=== PATIENT | female | born 1935 | race Caucasian/White ===

== ENCOUNTER 2016-11-01 07:53 | Inpatient (IN) ==
--- NOTE | 2016-11-01 08:27 | Emergency Department Note ---
Arrival - Arrival Chief Complaint: Weakness Stated Complaint: weakness ED Nursing Triage Note: left sided weakness noted left sided facial droop noted. Thick tongue with talking Mode of Arrival: Stretcher Limitations: No Limitations Source: Patient, Family, RN Notes Reviewed Time Seen by Provider: 11/01/16 08:13 - History of Present Illness HPI Narrative: Patient is an 81-year-old white female who awakened this morning from sleep with left arm left leg weakness and slurred speech. Patient's last known well time was between 9 and 10 PM last night. She denies a headache. She denies any chest pain or shortness of breath. Onset (ago): unknown Consistency: constant Severity: moderate Quality: other Date of Last Menstrual Period: hysterectomy Allergies/Adverse Reactions: Allergies Allergy/AdvReac Type Severity Reaction Status Date / Time Penicillins Allergy RASH Verified 08/16/15 20:42 Home Medications: Home Medications Medication Instructions Recorded Confirmed Type Carbidopa/Levodopa 1 each PO TID 11/01/16 11/01/16 History [Carbidopa-Levodopa 25-100 Tab] Fenofibrate [Tricor] 145 mg PO DAILY 11/01/16 11/01/16 History Glimepiride [Amaryl] 4 mg PO DAILY 11/01/16 11/01/16 History Lisinopril 40 mg PO DAILY 11/01/16 11/01/16 History Metformin HCl 1,000 mg PO BID 11/01/16 11/01/16 History Metoprolol Succinate Xl [Toprol Xl] 25 mg PO DAILY 11/01/16 11/01/16 History amLODIPine [Norvasc] 5 mg PO DAILY 11/01/16 11/01/16 History Review of System - Review of System 12 point system: reviewed and no additional remarkable complaints except as stated - Review of System Constitutional: Absent: chills, fever Respiratory: Absent: cough, respiratory distress Cardiovascular: Absent: chest pain, dyspnea on exertion, orthopnea Gastrointestinal: Absent: nausea, vomiting Musculoskeletal: Absent: arm pain Neurological: Present: weakness, abnormal gait. Absent: headache, numbness, confusion Medical,Surgical,& Family Hx - Medical History Cardio: History of: Hypertension Endocrine: History of: Diabetes Mellitus (IDDM) - Social History Smoking Status: Never smoker Frequency of Alcohol Use: None Type of Drug Use: None Functional capacity: independent ambulation Exam Vital Signs: Vital Signs Temperature 98.0 F 11/01/16 08:03 Pulse Rate 60 11/01/16 08:03 Respiratory Rate 17 11/01/16 08:03 Blood Pressure 161/68 11/01/16 08:03 O2 Sat by Pulse Oximetry 93 L 11/01/16 08:03 GENERAL: This is a well-nourished well-developed white female in no apparent distress. VITAL SIGNS: Reviewed HEENT: Head is atraumatic and normocephalic. Pupils are equal round react to light. Extraocular movements are intact. Oropharynx is benign with moist mucous membranes. NECK: Neck is soft and supple without tenderness. There are no masses. There is no lymphadenopathy. LUNGS: Lungs are clear to auscultation. Chest rises symmetrically. There is no chest wall tenderness. CV: Heart is irregular rate and rhythm without murmurs rubs or gallops. ABDOMEN: Abdomen is soft, nontender to palpation. There are no abdominal abnormal masses palpated. There is no organomegaly. Bowel sounds are present and active. SKIN: Skin is warm and dry. No rash. EXTREMITIES: Patient has full range of motion without tenderness. There is no pedal edema. NEUROLOGIC: Awake alert and oriented 4. Cranial nerves II through XII are grossly intact with the exception of tongue deviation to the right. No visual field cut. Motor is 5 over 5 right arm and right leg, 3-4/5 in left arm and left leg. Ulnar drift in the left arm. Deep tendon reflexes are 2+ and bilaterally equal. Course Course Narrative: Patient is not a candidate for tPA due to her last known well time. - Consultations Consultation #1: Discussed with hospitalist. Patient will be admitted to their service. Time: 08:30 Results - Labs Lab Results: I have reviewed the patients labs - EKG EKG results: interpreted by ERMD - Impressions EKG: Sinus bradycardia with a rate of 53, right bundle branch block, old inferior UT. Old anterolateral UT. - Diagnostic Findings Procedure: Chest x-ray: image reviewed by me (No infiltrates, no pleural effusions.), CT: image reviewed by me (CT head: No acute intracranial lesion or hemorrhage.) Disposition Clinical Impression: Acute ischemic stroke Case discussed with: patient, patient's family Disposition: Still a Patient Condition: Stable Time of Disposition: 08:30 NIH Stroke Score - Stroke Score Initial Assessment Level of Consciousness: Alert Level of Consciousness Questions: Answers Both Correctly Level of Consciousness Commands: Obeys Both Correctly Best Gaze: Normal Visual Matute: No Visual Loss Facial Palsy: Normal Motor - Right Arm: No Drift Motor - Left Arm: Drift Motor - Right Leg: No Drift Motor - Left Leg: Drift Limb Ataxia: Present in Two Limbs Sensory (Pin Prick): Normal Best Language: Normal Dysarthria: Mild to Moderate Extinction / Inattention (Neglect): No Neglect NIH Stroke Score: 5
--- NOTE | 2016-11-01 08:27 | CT Report ---
CT brain Indication: Left side hemiparesis Comparison: None available Technique: Axial CT imaging of the brain is performed without contrast with 3 mm increments. Findings: No evidence of hemorrhage, mass mass effect midline shift or acute infarct seen. There is moderate diffuse cerebral atrophy. There are areas of decreased density seen within the white matter likely related to chronic microvascular changes. Otherwise the brain parenchyma attenuation and differentiation appears within normal limits. The ventricles and cisterns are normal in caliber. No cranial or skull base abnormality is identified. Impression: No definite evidence of acute infarct or acute process demonstrated. Decreased white matter density, underlying subacute infarct cannot be excluded. This CT exam was performed using one or more the following dose reduction techniques: Automated exposure control, adjustment of the MA and/or KV according to patient size, or use of iterative reconstruction technique. PROCEDURE INTERPRETED AT [facility] DEPARTMENT OF RADIOLOGY Final Report Signed by: Dr. Davidson Mulligan
--- NOTE | 2016-11-01 08:31 | XRay Report ---
XR chest 1V portable Indication: Cardiomegaly Comparison: None available Findings: The heart and mediastinum are stable in size and configuration. The pulmonary vascularity is slightly increased with bilateral increased interstitial lung density. No other lung infiltrates, effusions, pneumothorax or other abnormality is demonstrated. Impression: Findings suggest mild cardiac decompensation. PROCEDURE INTERPRETED AT [facility] DEPARTMENT OF RADIOLOGY Final Report Signed by: Dr. Davidson Mulligan
--- NOTE | 2016-11-01 08:35 | EKG Report ---
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
[2016-11-01 08:44] LABS: Basophils # 0.1 10*3/uL (0.0-0.2); Basophils % 0.5 % (0.0-0.8); Eosinophils # 0.1 10*3/uL (0.0-0.87); Eosinophils % 1.3 % (0.00-10.9); Hematocrit 42.9 VOL% (35.7-47.0); Hemoglobin 15.1 GM/DL (12.0-16.0); Immature Granulocytes % 0.4 %; Immature Granulocytes Absolute 0.04 #; Lymphocytes # 2.4 10*3/uL (1.4-4.0); Lymphocytes % 22.1 % (21.3-54.2); Mean Corpuscular HGB Conc 35.2 GM/DL (32-36); Mean Corpuscular Hemoglobin 32 PG (27-34); Mean Corpuscular Volume 90.5 FL (87-102); Mean Platelet Volume 11.8 FL (9.6-12.0); Monocytes % 9.8 % (1.7-12.7); Neutrophils % 65.9 % (38.7-73.9); Platelet Count 224 T/CUMM (130-400); Red Blood Count 4.74 MC/CUMM (3.8-5.5); Red Cell Distribution Width 12.7 % (9.3-17.3); White Blood Count 10.6 T/CUMM (4-12)
[2016-11-01 08:58] LABS: PT Patient Result 11.1 SECS; Partial Thromboplastin Time 27.1 SECS (0-40)
[2016-11-01 09:18] LABS: Apearance,Urine CLEAR (Clear); Bilirubin,Urine Negative (Negative); Blood, Urine Negative (Negative); Glucose,Urine (UA) Negative (Negative); Hyaline Casts,Urine 1 /LPF (0-3); Ketones,Urine Negative (Negative); Nitrite,Urine Negative (Negative); Protein,Urine Negative; RBC,Urine <1 /HPF (0-4); Squamous Epithelial Cell,Urine Occasional /HPF (0-10); Urine Color Yellow (Yellow); Urine Specific Gravity 1.011 (1.001-1.035); Urine Urobilinogen < 2.0 EU/DL (0.2-1.0); WBC,Urine <1 /HPF (0-6)
[2016-11-01 09:19] LABS: Alanine Aminotransferase 26 U/L (13-56); Albumin 3.6 G/DL (3.4-5.0); Alkaline Phosphatase 46 U/L (45-117); Aspartate Amino Transferase 26 U/L (0-37); Blood Urea Nitrogen 16 MG/DL (7-18); Calcium 9.5 MG/DL (8.5-10.1); Glucose 151 MG/DL (74-106); Sodium 138 MMOL/L (136-145); Total Protein 7.9 G/DL (6.4-8.3)
[2016-11-01 09:20] LABS: Osmolality,Calculated 278.7 MOS/KG (273-304)
[2016-11-01 09:30] LABS: Barbiturates Screen,Urine Negative (Negative); Benzodiazepines Screen,Urine Negative (Negative); Cannabinoid Screen,Urine Negative (Negative); Opiate Screen,Urine Negative (Negative); Phencyclidine Screen,Urine Negative (Negative)
--- NOTE | 2016-11-01 09:30 | Hospitalist History & Physical ---
<Anna Lara - Last Filed: 11/01/16 09:53> Assessment and Plan - Time spent with patient Time spent with patient: Greater than 30 minutes (1) Acute ischemic stroke Status: Acute Assessment and plan: 11/01/16 - Will admit to Hospital Services. Will start ASA. Will order MRI and MRA. Will consult Neurology. Will discuss with Dr Luo for further recommendations of care. Current Visit: Yes History of Present Illness Chief complaint: left sided weakness new onset History of present illness: Ms. Arevalo is a 81 year old white female w/ PMHx of hypertension and diabetes; presented to the Ed from [facility] for c/o weakness, left sided. She reports feeling fine when she went to bed at between 9-10, woke up this morning around 6 got up to eat breakfast but started feeling weak in her left arm and left leg. She denies nausea, vomiting, fever, chills, chest pain, shortness of breath or headache. IN ED: she was noted to have some slurred speech. Head CT: Impression: No definite evidence of acute infarct or acute process demonstrated. Decreased white matter density, underlying subacute infarct cannot be excluded. CXR: Findings suggest mild cardiac decompensation. LABS: INR 1.0 PT 11.1, PTT 27.1; Glucose 151; Urine was negative. After discussion with Dr Alexander in the ED and Dr Luo with Hospital Medicine, it was agreed patient will need to be admitted for further evaluation. Home medications will be reviewed and reconciliation to follow. Home Medications Medication Instructions Recorded Confirmed Type Carbidopa/Levodopa 1 each PO TID 11/01/16 11/01/16 History [Carbidopa-Levodopa 25-100 Tab] Fenofibrate [Tricor] 145 mg PO DAILY 11/01/16 11/01/16 History Glimepiride [Amaryl] 4 mg PO DAILY 11/01/16 11/01/16 History Lisinopril 40 mg PO DAILY 11/01/16 11/01/16 History Metformin HCl 1,000 mg PO BID 11/01/16 11/01/16 History Metoprolol Succinate Xl [Toprol Xl] 25 mg PO DAILY 11/01/16 11/01/16 History amLODIPine [Norvasc] 5 mg PO DAILY 11/01/16 11/01/16 History Allergies Allergy/AdvReac Type Severity Reaction Status Date / Time Penicillins Allergy RASH Verified 08/16/15 20:42 Medical,Surgical,& Family Hx - Medical History Cardio: History of: Hypertension Endocrine: History of: Diabetes Mellitus (IDDM) - Surgical History Reproductive Surgeries: Surgical HX of;: Hysterectomy - Family History Family History: Reports;: Family Diabetes, Family Heart Disease, Family Hypertension - Social History Smoking Status: Never smoker Frequency of Alcohol Use: None Type of Drug Use: None Lives With:: [facility] [place] Functional capacity: uses cane/walker (ocassionally uses a cane not very often) Review of systems: ROS completed and pertinent positives and negatives in HPI. Exam - Constitutional Vitals: Period Temp Pulse Resp BP Sys/Minor Pulse Ox Last 24 Hr 98.0 F-98.0 F 60-60 17-17 161-161/68-68 93-97 General appearance: normal weight, no acute distress Exam: Patient appropriately responded to all questions; alert awake and oriented to person and place. She had notable left sided weakness to left arm and left leg. 3-4/5 in arm and leg -left Right arm and leg 5/5 Facial droop- slight to left side involving eye and mouth Tongue deviation to the right - slight - Head Head exam: Present: normal inspection - Eye Eye exam: Present: EOMI Pupils: Present: KEVIN - Neck Neck exam: Present: normal inspection. Absent: thyromegaly - Respiratory Respiratory exam: Present: clear to auscultation bilaterally. Absent: rhonchi, stridor, wheezes - Cardiovascular Cardiovascular exam: Present: irregular rhythm - GI/Abdominal GI/Abdominal exam: Present: normal bowel sounds, soft. Absent: tenderness, rebound - Extremities Exam Extremities exam: Present: full ROM. Absent: edema - Neurological Exam Neurological exam: Present: alert, oriented X3 - Psychiatric Psychiatric exam: Present: normal affect, normal mood. Absent: agitated, anxious - Skin Skin exam: Present: normal color, warm, dry Results - Labs CBC & BMP: 11/01/16 08:15 11/01/16 08:15 Lab Results: I have reviewed the past 24 hour labs - Diagnostic Findings Procedure: Chest x-ray: report reviewed by me (Findings suggest mild cardiac decompensation.), CT: report reviewed by me, pending (head: No definite evidence of acute infarct or acute process demonstrated; Decreased white matter density, underlying subacute infarct cannot be excluded) Quality Measures - Stroke Onset of Symptoms Date: 11/01/16 Presenting Symptoms: Left hemiparesis Symptom Onset Unknown: Yes <Monica Luo - Last Filed: 11/01/16 12:23> History of Present Illness History of present illness: Ms. Arevalo is a 81 year old female with a history of HTN, Dementia, DM who was doing relatively okay went to sleep last night in her usual self, then she woke up this am, was about to go to the bathroom, noticed some weakness on her left side.Her speech was also noticed to be slurred.She however denies facial weakness, swallowing problems and headaches. There was no palpitation, chestpain or SOB.In the ER,Blood pressure was 131/79,CT showed no acute changes but a subacute infarct could not be ruled out.She was started on ASA and currently on admission for a stroke workup.Patient was seen, examined and discussed with the COMMERCIAL TELLER. Plan Monitored bed activate stroke protocol Carotid doppler-Less than 50% stenosis in both internal carotid arteries Echo Lipids-noted, will place on statin TSH Vitb12, folate MRI/MRA PT/OT/ST consult Evaluate swallowing DVT/GI prophylaxis Follow Echo Neuro consult continue current management. serial cardiac enzymes SSC Exam - Constitutional Vitals: Period Temp Pulse Resp BP Sys/Minor Pulse Ox Last 24 Hr 98.0 F-98.0 F 43-60 13-20 131-168/63-98 93-99 Results - Labs CBC & BMP: 11/01/16 08:15 11/01/16 08:15
[2016-11-01] MEDS ORDERED: LABETALOL 20 MG/4 ML SYRINGE IV PRN (09:40)
[2016-11-01] MEDS ORDERED: GLUCAGON 1 MG VIAL IM PRN (09:50)
[2016-11-01] MEDS ORDERED: DEXTROSE 50% 25 GM/50 ML VIAL IV PRN (09:50)
[2016-11-01] MEDS ORDERED: ACETAMINOPHEN 325 MG TABLET PO PRN (09:51)
[2016-11-01] MEDS ORDERED: DOCUSATE SODIUM 100 MG CAPSULE PO PRN (09:51)
[2016-11-01] MEDS ORDERED: ONDANSETRON 4 MG/2 ML VIAL IV PRN (09:51)
[2016-11-01 10:08] LABS: Cholesterol 176 MG/DL (50-200); HDL Cholesterol 32 MG/DL (40-60); Triglycerides 162 MG/DL (2-150); Troponin I Only < 0.015 NG/ML (0.00-0.045); VLDL CHOLESTEROL 32.4 MG/DL
--- NOTE | 2016-11-01 10:54 | Ultrasound Report ---
Exam: Carotid ultrasound Date: 11/01/2016 Comparison: None Technique: Duplex scans of the carotid and vertebral arteries using B-mode/Reeder scale imaging and Doppler spectral analysis and color flow. Reason: Left-sided weakness Findings: The right ICA measures 5.4 mm in diameter and the left ICA measures 6.0 mm in diameter. Color-flow documented in the visualized arteries. The peak systolic velocities are as follows: Right CCA: 77.6 cm/s Right ICA: 132.7 cm/s Right ECA: 69.3 cm/s Left CCA: 86.4 cm/s Left ICA: 65.0 cm/s Left ECA: 76.1 cm/s The peak systolic ICA/CCA velocity ratios are as follows: 1.7 on the right and 0.8 on the left. Antegrade flow is present in both vertebral arteries. Impression:[Less than 50% stenosis in both internal carotid arteries. The stenosis is felt to be at the upper end of this range in the proximal right ICA with more prominent calcific plaque formation. The arteries are tortuous. Antegrade flow in both vertebral arteries.] The Society of Radiologists in Ultrasound consensus conference criteria was used. The Ultrasound images were captured and stored. PROCEDURE INTERPRETED AT [facility] DEPARTMENT OF RADIOLOGY Final Report Signed by: Dr. Luann Franco
[2016-11-01 13:17] LABS: Troponin I Only < 0.015 NG/ML (0.00-0.045)
[2016-11-01 13:27] LABS: Folate 13.6 NG/ML (5.4-24.0); Free T4 (Free Thyroxine) 1.15 NG/DL (0.76-1.46); Thyroid Stimulating Hormone 1.26 uIU/ml (0.358-3.74)
[2016-11-01] MEDS ORDERED: DEXTROSE 50% 25 GM/50 ML SYRINGE IV PRN (15:30)
--- NOTE | 2016-11-01 16:51 | Neurology Consult Note ---
History of Present Illness History of present illness: 81 years old right-handed white lady with past medical history significant for hypertension, diabetes is a resident of assisted living admitted to the hospital with acute onset of left-sided weakness. Granddaughter reported that she woke up this morning and had speech difficulties and left-sided weakness. She cannot move her left arm and leg. She has significantly dysarthric speech. She passed swallowing study though. CT of the head reveals no acute abnormalities. Denies nausea vomiting fever chills chest pain shortness of breath or headache. Patient is scheduled for MRI of the brain. Home Medications Medication Instructions Recorded Confirmed Type Carbidopa/Levodopa 1 each PO TID 11/01/16 11/01/16 History [Carbidopa-Levodopa 25-100 Tab] Fenofibrate [Tricor] 145 mg PO DAILY 11/01/16 11/01/16 History Glimepiride [Amaryl] 4 mg PO DAILY 11/01/16 11/01/16 History Levothyroxine Tab [Synthroid Tab] 25 mcg PO DAILY 11/01/16 11/01/16 History Lisinopril 40 mg PO DAILY 11/01/16 11/01/16 History Metformin HCl 1,000 mg PO BID 11/01/16 11/01/16 History Metoprolol Succinate Xl [Toprol Xl] 25 mg PO DAILY 11/01/16 11/01/16 History amLODIPine [Norvasc] 5 mg PO DAILY 11/01/16 11/01/16 History Allergies Allergy/AdvReac Type Severity Reaction Status Date / Time Penicillins Allergy RASH Verified 08/16/15 20:42 12 point system: reviewed and no additional remarkable complaints except as stated Medical,Surgical,& Family Hx - Medical History Cardio: History of: Hypertension Endocrine: History of: Diabetes Mellitus (IDDM) - Surgical History Thoracic Surgeries: Patient denies;: Organ Transplant Reproductive Surgeries: Surgical HX of;: Hysterectomy - Family History Family History: Reports;: Family Diabetes, Family Heart Disease, Family Hypertension - Social History Smoking Status: Never smoker Frequency of Alcohol Use: None Type of Drug Use: None Exam - Constitutional Vitals: Period Temp Pulse Resp BP Sys/Minor Pulse Ox Last 24 Hr 96.3 F-98.0 F 43-95 13-20 131-168/63-98 93-99 Exam: GENERAL: Patient is in no acute distress. NECK: Neck is supple. There is no JVD. No carotid bruits present. No thyroid masses. CVS: First and second heart sounds are normal. There is no S3 present. Regular rate and rhythm. RESPIRATORY: Lungs are clear to auscultation without any rales or rhonchi. ABDOMEN: Soft and non-tender. Bowel sounds are present. There is no hepatosplenomegaly. EXT: There is no palpable edema. Peripheral pulses are present. Skin: No rashes Central Nervous system: General: Alert, awake and Oriented x 3 Speech: Fluent Comprehension: Intact and normal Facial expressions: Normal Cranial Nerves: CN1/Olfactory: Normal CN II/ Optic: Normal, Visual Matute unreliable CN III, and : KEVIN & EOMI CN V: Normal & intact CN VII: face is symmetric CNVIII: Normal CN XI/X/XI/XII: Intact and Normal Motor: Bulk and Tone is normal. Strength in the right 5/5 Strength in the left 1-2/5 Sensory: Decreased for all the modalities of PP, LT and temp sense Reflexes: 1+ and symmetrical Cerebellar function: Normal finger to nose and heel to hemphill testing in the right and could not do the left. Toes: Left upgoing toe Gait: Not tested at this time Results - Labs CBC & BMP: 11/01/16 08:15 11/01/16 08:15 Assessment and Plan (1) Acute CVA (cerebrovascular accident) Status: Acute Assessment and plan: Continue aspirin. Add Plavix. Consult TMR We will review MRI Agree with Lipitor Add Prozac 20 mg daily Thank you for the consult Current Visit: Yes
[2016-11-01] MEDS: INSULIN LISPRO 100 UNIT/ML SUBCUT SCH (18:04)
--- NOTE | 2016-11-01 19:59 | ECHO Report ---
Jj Arevalo Exam Date: 11/01/2016 11:03 Referring Physician: Technologist: sheree Pineda ARDMS, RVT Age: 81 Ht (in): 66 Wt (lb): 145 Gender: F Exam Location: [facility] Echo Indications: Acute ischemic stroke BP: 145 / 54 HR: 51 Rhythm: Sinus Technical Quality: Fair IMPRESSIONS 1. Somewhat limited study. 2. Left ventricle is normal size with septal hypertrophy. Ejection fraction 55% without specific segmental wall motion abnormalities. 2. Other cardiac chambers are normal size. 3. Valvular structures are grossly unremarkable and within normal limits. There certainly is no significant Doppler abnormalities. 4. There is no gross intrachamber mass or thrombi noted or source for emboli. Certainly this could be missed on a transthoracic echocardiogram of this quality. MEASUREMENTS (Male / Female) Normal Values 2D ECHO LV Diastolic Diameter PLAX 4.1 cm 4.2 - 5.9 / 3.9 - 5.3 cm LV Systolic Diameter PLAX 2.1 cm LV Fractional Shortening PLAX 48.4 % IVS Diastolic Thickness 1.4 cm 0.6 - 1.0 / 0.6 - 0.9 cm LVPW Diastolic Thickness 1.0 cm 0.6 - 1.0 / 0.6 - 0.9 cm RV Internal Dim ED PLAX 3.2 cm Aortic Root Diameter 3.8 cm LA Systolic Diameter LX 2.9 cm 3.0 - 4.0 / 2.7 - 3.8 cm DOPPLER TR Peak Velocity 212.0 cm/s TR Peak Gradient 18.0 mmHg FINDINGS Left Ventricle Normal left ventricular cavity size. Mild left ventricular hypertrophy specifically septal hypertrophy. Left ventricular ejection fraction is estimated at 65 %. Right Ventricle The right ventricle is normal in size and function. Right Atrium The right atrium is normal in size. Left Atrium The left atrium is normal in size. Mitral Valve Morphologically normal mitral valve without significant stenosis or prolapse. There is no mitral regurgitation. Aortic Valve Morphologically normal aortic valve without significant sclerosis or stenosis. There is no aortic regurgitation. Tricuspid Valve Morphologically normal tricuspid valve without significant stenosis or regurgitation. Pulmonary artery systolic pressure is normal. Pulmonic Valve Morphologically normal pulmonic valve. Mild pulmonary valve regurgitation. Pericardium Normal pericardium without effusion. Aorta Normal ascending aorta dimension. Richard Corado MD (Electronically Signed) Final Date: 01 November 2016 19:58
[2016-11-01] MEDS: ATORVASTATIN 10 MG TABLET PO SCH (21:05)
[2016-11-01] MEDS: FLUoxetine 20 MG CAPSULE PO SCH (21:05)
[2016-11-01] MEDS: ENOXAPARIN 40 MG/0.4 ML SYRINGE SUBCUT SCH (22:30)
[2016-11-02 05:31] LABS: Basophils % 0.5 % (0.0-0.8); Eosinophils # 0.1 10*3/uL (0.0-0.87); Eosinophils % 0.9 % (0.00-10.9); Hematocrit 42.6 VOL% (35.7-47.0); Immature Granulocytes % 0.5 %; Immature Granulocytes Absolute 0.04 #; Lymphocytes # 2.1 10*3/uL (1.4-4.0); Lymphocytes % 24.1 % (21.3-54.2); Mean Corpuscular HGB Conc 35.2 GM/DL (32-36); Mean Corpuscular Hemoglobin 32 PG (27-34); Mean Corpuscular Volume 89.5 FL (87-102); Monocytes # 0.8 10*3/uL (0.11-0.8); Neutrophils # 5.7 10*3/uL (1.4-7.4); Platelet Count 163 T/CUMM (130-400); Red Blood Count 4.76 MC/CUMM (3.8-5.5); Red Cell Distribution Width 12.6 % (9.3-17.3); White Blood Count 8.8 T/CUMM (4-12)
[2016-11-02 06:06] LABS: Calcium 9.5 MG/DL (8.5-10.1)
[2016-11-02 06:23] LABS: Troponin I Only < 0.015 NG/ML (0.00-0.045)
[2016-11-02] MEDS: CLOPIDOGREL 75 MG TABLET PO SCH (09:16)
[2016-11-02] MEDS: ASPIRIN 325 MG TABLET PO SCH (09:16)
[2016-11-02] MEDS: PANTOPRAZOLE 40 MG TABLET PO SCH (09:16)
[2016-11-02] MEDS: INSULIN LISPRO 100 UNIT/ML SUBCUT SCH ×2 (09:16→17:15)
[2016-11-02] MEDS ORDERED: LORazepam 2 MG/1 ML VIAL IV ONE (09:26)
--- NOTE | 2016-11-02 11:06 | Magnetic Resonance Report ---
History: Left-sided weakness. Slurred speech Date: 11/02/2016 Study: MRI brain without IV contrast Comparison exam: CT head November 01, 2016 The brain was imaged in 3 planes on the 1.5 Tavia magnet without IV contrast, to include diffusion, T2, FLAIR, gradient echo, and T1-weighted sequences. The ventricles are midline in position without evidence of hydrocephalus. There is no Chiari I malformation. There is no gross pituitary mass. There is a wedge-shaped area of restricted diffusion compatible with acute ischemia measuring 8 mm x 16 mm maximum dimensions in the timmy to the right of the midline, as seen on the diffusion images. There is no parenchymal hemorrhage. There is no abnormal mass effect. There is a large amount of confluent increased T2 and FLAIR signal in the periventricular white matter without mass effect compatible with prominent changes of periventricular small vessel disease. There are innumerable prominent perivascular spaces throughout the frontoparietal centrum semiovale and diaz radiata, with or without intermixed areas of chronic lacunar ischemia. There is a normal flow void in the superior sagittal sinus. There is no gross flow abnormality in the [place] of Mary area. There is no extra-axial hematoma. Remote post cataract surgery changes are present bilaterally. Impression: 16 x 8 mm area of acute ischemia in the timmy to the right of midline. No parenchymal hemorrhage. Prominent changes of chronic small vessel ischemia PROCEDURE INTERPRETED AT [facility] DEPARTMENT OF RADIOLOGY Final Report Signed by: Dr. Lisseth Nieto
--- NOTE | 2016-11-02 14:53 | Hospitalist Progress Note ---
Assessment and Plan - Time spent with patient Time spent with patient: Greater than 30 minutes (Pt is new to me and I reviewed pt's chart and discussed with RN and pt's family members today.) (1) Acute ischemic stroke Status: Acute Assessment and plan: Stroke protocol. Fall precaution. Aspiration precaution. Neurology consulted. On stroke protocol. On ASA and Plavix per Neurology. Continue lipitor. PT and OT and Speech f/u. Current Visit: Yes (2) Hyperglycemia Status: Acute Assessment and plan: Monitor, BMP in am. If still high, will add insulin sliding scale. Current Visit: Yes Hospitalist: Subjective Interval history: Sleeping. Had MRI done this am and showed 16x8mm acute ischemic stroke in [place]. Echo and carotid US done yesterday. On ASA and plavix per Neurology. Speech evaluted pt. PT consulted. Son in the room. No fever or diarrhea reported. UA clear no UTI. Exam - Constitutional Vitals: Period Temp Pulse Resp BP Sys/Minor Pulse Ox Last 24 Hr 96.3 F-99.2 F 53-95 18-20 125-163/70-85 92-98 Exam: General: Lying in bed and sleeping HEENT: AC NC EOMI normal lips and gum. Lungs: B/l CTA Heart: +S1/S2, no gallops. Abd: +BS, NT ND Neuro: Weakness on left side extremities. Results - Labs CBC & BMP: 11/02/16 05:12 11/02/16 05:12 Quality Measures - Stroke Onset of Symptoms Date: 11/01/16 Presenting Symptoms: Left hemiparesis Symptom Onset Unknown: Yes
[2016-11-02] MEDS: ATORVASTATIN 10 MG TABLET PO SCH (20:51)
[2016-11-02] MEDS: FLUoxetine 20 MG CAPSULE PO SCH (20:51)
[2016-11-02] MEDS: ENOXAPARIN 40 MG/0.4 ML SYRINGE SUBCUT SCH (20:51)
[2016-11-02] MEDS ORDERED: FAMOTIDINE 20 MG/2 ML VIAL IV ONE (21:20)
[2016-11-02] MEDS ORDERED: diphenhydrAMINE CAP 50 MG CAPSULE PO ONE (21:21)
[2016-11-02] MEDS ORDERED: diphenhydrAMINE CAP 25 MG CAPSULE PO PRN (21:22)
[2016-11-02] MEDS ORDERED: hydrOXYzine HCL 25 MG TABLET PO ONE (23:35)
[2016-11-03 02:34] LABS: Basophils % 0.4 % (0.0-0.8); Eosinophils # 0.2 10*3/uL (0.0-0.87); Eosinophils % 1.8 % (0.00-10.9); Hematocrit 41.3 VOL% (35.7-47.0); Hemoglobin 14.5 GM/DL (12.0-16.0); Immature Granulocytes % 0.3 %; Immature Granulocytes Absolute 0.03 #; Lymphocytes # 2.9 10*3/uL (1.4-4.0); Lymphocytes % 28.8 % (21.3-54.2); Mean Corpuscular HGB Conc 35.1 GM/DL (32-36); Mean Corpuscular Hemoglobin 31 PG (27-34); Mean Corpuscular Volume 89.4 FL (87-102); Mean Platelet Volume 12.6 FL (9.6-12.0); Monocytes % 9.8 % (1.7-12.7); Neutrophils % 58.9 % (38.7-73.9); Platelet Count 223 T/CUMM (130-400); Red Blood Count 4.62 MC/CUMM (3.8-5.5); Red Cell Distribution Width 12.8 % (9.3-17.3); White Blood Count 10.2 T/CUMM (4-12)
[2016-11-03 02:57] LABS: Albumin 3.4 G/DL (3.4-5.0); Bilirubin,Total 0.7 MG/DL (0.2-1.0); Calcium 9.2 MG/DL (8.5-10.1); Phosphorous 3.6 MG/DL (2.5-4.9); Total Protein 7.2 G/DL (6.4-8.3)
[2016-11-03 02:58] LABS: Magnesium 2.2 MG/DL (1.8-2.4); Osmolality,Calculated 284.5 MOS/KG (273-304); Potassium 3.7 MMOL/L (3.5-5.1)
[2016-11-03] MEDS: metFORMIN 500 MG TABLET PO SCH ×2 (09:12→16:41)
[2016-11-03] MEDS: ASPIRIN 325 MG TABLET PO SCH (09:12)
[2016-11-03] MEDS: CLOPIDOGREL 75 MG TABLET PO SCH (09:13)
[2016-11-03] MEDS: INSULIN LISPRO 100 UNIT/ML SUBCUT SCH ×2 (09:15→16:41)
[2016-11-03] MEDS: PANTOPRAZOLE 40 MG TABLET PO SCH (09:48)
--- NOTE | 2016-11-03 10:25 | Hospitalist Progress Note ---
Assessment and Plan (1) Acute CVA (cerebrovascular accident) Status: Acute Assessment and plan: MRI on yesterday reported 16 x 8 mm acute ischemic stroke isolated in the timmy. Carotid Doppler reported less than 50% stenosis in both internal carotid arteries. Echocardiogram reported left ventricular normal size with septal hypertrophy and an ejection fraction of 55% without specific segmental wall motion abnormalities. A neurology consultation has been requested and the patient has been seen and evaluated. We will continue aspiration precautions and platelet aggregation as ordered. Spoke with the family in great detail regarding the need for intensive rehab at the time of discharge. The family is in agreement with swing bed placement and request placement at [facility] if possible. Current Visit: Yes (2) Acute ischemic stroke Status: Acute Assessment and plan: MRI on yesterday confirmed 16 x 8 mm acute ischemic stroke in the timmy. The patient has been seen and evaluated by neurology. We will continue platelet aggregation, lipid-lowering agents, and aspiration precautions as ordered. Current Visit: Yes (3) Hyperglycemia Status: Acute Assessment and plan: Hemoglobin A1c was noted at 7.0. The patient remains on Accu-Cheks with sliding scale coverage; blood glucose levels have remained consistently elevated over 130 overnight. We will start low-dose metformin 250 mg twice daily. We will monitor blood glucose levels and provide supportive care. Current Visit: Yes Hospitalist: Subjective Interval history: Patient seen and examined. Staff reported an uneventful night last night they reported that the patient possibly had an allergic reaction to the lorazepam given prior to MRI. They reported that the patient became very flushed and her face was grossly erythemic. In addition, they noted that the patient became restless and started to experience pruritus. The patient was given Benadryl and Atarax the symptoms subsided Exam - Constitutional Vitals: Period Temp Pulse Resp BP Sys/Minor Pulse Ox Last 24 Hr 96.7 F-98.0 F 55-68 18-22 125-173/64-79 92-94 General appearance: normal weight, no acute distress - Head Head exam: Present: normal inspection, normocephalic - Eye Eye exam: Present: EOMI, conjunctival injection Pupils: Present: KEVIN, normal accommodation - ENT ENT exam: Present: normal exam, normal external ear exam, normal oropharynx - Neck Neck exam: Present: normal inspection. Absent: lymphadenopathy, meningismus, tenderness, thyromegaly - Respiratory Respiratory exam: Present: clear to auscultation bilaterally. Absent: rales, rhonchi, stridor, wheezes - Cardiovascular Cardiovascular exam: Present: regular rate and rhythm. Absent: carotid bruit, diastolic murmur, gallop, JVD, rubs, systolic murmur - GI/Abdominal GI/Abdominal exam: Present: normal bowel sounds, soft - Extremities Exam Extremities exam: Present: other (Left-sided weakness noted) - Back Exam Back exam: Present: normal inspection - Neurological Exam Neurological exam: Present: alert, motor sensory deficit (Left-sided weakness) - Psychiatric Psychiatric exam: Present: flat affect - Skin Skin exam: Present: normal color, warm, dry Results - Labs CBC & BMP: 11/03/16 02:01 11/03/16 02:01 Lab Results: I have reviewed the past 24 hour labs Quality Measures - Stroke Onset of Symptoms Date: 11/01/16 Presenting Symptoms: Left hemiparesis Symptom Onset Unknown: Yes
[2016-11-03] MEDS ORDERED: SKIN HEALING OINT (AQUAPHOR) 50 GM TUBE TOP PRN (14:20)
[2016-11-03] MEDS ORDERED: SODIUM CHLORIDE 0.9% 1,000 ML IV SCH (17:00)
[2016-11-03] MEDS: ATORVASTATIN 10 MG TABLET PO SCH (22:10)
[2016-11-03] MEDS: ENOXAPARIN 40 MG/0.4 ML SYRINGE SUBCUT SCH (22:11)
[2016-11-03] MEDS: FLUoxetine 20 MG CAPSULE PO SCH (22:12)
[2016-11-04 03:16] LABS: Basophils # 0.1 10*3/uL (0.0-0.2); Basophils % 0.5 % (0.0-0.8); Eosinophils # 0.4 10*3/uL (0.0-0.87); Eosinophils % 3.7 % (0.00-10.9); Hematocrit 39.2 VOL% (35.7-47.0); Hemoglobin 13.5 GM/DL (12.0-16.0); Immature Granulocytes % 0.3 %; Immature Granulocytes Absolute 0.03 #; Lymphocytes # 3.2 10*3/uL (1.4-4.0); Lymphocytes % 33.6 % (21.3-54.2); Mean Corpuscular HGB Conc 34.4 GM/DL (32-36); Mean Corpuscular Hemoglobin 31 PG (27-34); Mean Corpuscular Volume 91.2 FL (87-102); Mean Platelet Volume 12.4 FL (9.6-12.0); Monocytes # 0.9 10*3/uL (0.11-0.8); Monocytes % 9.1 % (1.7-12.7); Neutrophils % 52.8 % (38.7-73.9); Platelet Count 195 T/CUMM (130-400); Red Cell Distribution Width 12.7 % (9.3-17.3); White Blood Count 9.4 T/CUMM (4-12)
[2016-11-04 03:48] LABS: Albumin 3.1 G/DL (3.4-5.0); Bilirubin,Total 0.9 MG/DL (0.2-1.0); Calcium 9.2 MG/DL (8.5-10.1); Magnesium 2.1 MG/DL (1.8-2.4); Osmolality,Calculated 287.4 MOS/KG (273-304); Phosphorous 4.4 MG/DL (2.5-4.9); Potassium 3.8 MMOL/L (3.5-5.1); Total Protein 6.7 G/DL (6.4-8.3)
[2016-11-04 07:47] VITALS: BP 151/67
[2016-11-04] MEDS: CLOPIDOGREL 75 MG TABLET PO SCH (09:26)
[2016-11-04] MEDS: ASPIRIN 325 MG TABLET PO SCH (09:27)
[2016-11-04] MEDS: INSULIN LISPRO 100 UNIT/ML SUBCUT SCH (09:27)
[2016-11-04] MEDS: metFORMIN 500 MG TABLET PO SCH (09:27)
[2016-11-04] MEDS: PANTOPRAZOLE 40 MG TABLET PO SCH (09:27)
--- NOTE | 2016-11-04 10:04 | Discharge Summary ---
Hospital Course - Hospital Course Hospital Course: This is a very pleasant 81-year-old female that presented to the ED at [facility] on the morning of November 01, 2016 via EMS for the evaluation of left-sided weakness and left-sided facial droop. The patient has a medical history significant for Parkinson's disease, hyperlipidemia, non- insulin-dependent diabetes mellitus, dementia, and hypertension. The patient reported no significant surgical history at the time of encounter. The patient resided at the [facility]. The patient reported that she first noticed the symptoms around 6 AM on the day of the evening encounter. She reports that she was her normal state of health prior to going to bed at between 9 and 10:00 on the night prior to presentation. She reported that she got up to eat breakfast and started feeling some weakness in her left arm and left leg. In addition, the patient noticed that her speech was difficult and not well understood. She alerted the staff at [place] who subsequently called EMS for further evaluation. The patient was subsequently transported to [facility] for further evaluation. The patient was assessed at the time of ED encounter. At the time of ED presentation, the patient was noted to have profound left-sided weakness, left- sided facial droop, and difficulty speaking. Labs were obtained which were essentially significant for blood glucose level of 151. Chest x-ray reported mild cardiac decompensation. CT head and brain was unremarkable for any evidence of acute infarct or acute process however decreased white matter density and underlying subacute infarct cannot be excluded. The patient was subsequently admitted to the hospitalist service for continuation of care. A full stroke workup was initiated. On November 01, 2016 the patient underwent bilateral carotid Doppler studies which reported less than 50% stenosis in both internal carotid arteries. Echocardiogram on November 01, 2016 reported normal left ventricle size with septal hypertrophy with an ejection fraction of 55% without specific segmental wall abnormalities. A neurology consultation was requested. The patient was seen and recommendations were given. On November 02, 2016, the patient underwent MRI brain without IV contrast which reported a 16 x 8 mm area of acute ischemia in the timmy to the right of midline however, no parenchymal hemorrhage is noted. In addition prominent changes of a chronic small vessel ischemia was noted. Physical, occupational, and speech therapy consultations were requested and treatment was initiated. The patient's condition slowly improved. The patient's condition is stable. She has not experienced any significant overnight events. Today, we feel that she is indeed appropriate for discharge to [facility] for continuation of care. Diagnosis - Discharge Diagnosis (1) Acute CVA (cerebrovascular accident) Status: Acute (2) Acute ischemic stroke Status: Acute (3) Hyperglycemia Status: Acute Discharge Plan - Discharge Medications No Action Metformin HCl 1,000 mg PO BID Lisinopril 40 mg PO DAILY amLODIPine [Norvasc] 5 mg PO DAILY Fenofibrate [Tricor] 145 mg PO DAILY Carbidopa/Levodopa [Carbidopa-Levodopa 25-100 Tab] 1 each PO TID Levothyroxine Tab [Synthroid Tab] 25 mcg PO DAILY Metoprolol Succinate Xl [Toprol Xl] 25 mg PO DAILY Glimepiride [Amaryl] 4 mg PO DAILY - Follow Up or Referral - Forms/Instructions Exam - Constitutional Vitals: Period Temp Pulse Resp BP Sys/Minor Pulse Ox Last 24 Hr 96.7 F-98.4 F 47-62 16-59 134-159/60-86 92-95 Discharge Results Procedures and tests throughout hospitalization: Pending Orders 11/05/16 04:00 CBC [Comp Blood Count Auto Diff] IN AM CMP [Comprehensive Metabolic Panel] IN AM Magnesium IN AM Phosphorous IN AM Labs on day of discharge: Labs from last 24 hours 11/04/16 11/04/16 11/04/16 07:39 02:46 02:46 WBC 9.4 RBC 4.30 Hgb 13.5 Hct 39.2 MCV 91.2 MCH 31 MCHC 34.4 RDW 12.7 Plt Count 195 MPV 12.4 H Neut % (Auto) 52.8 Lymph % (Auto) 33.6 [place] % (Auto) 9.1 Eos % (Auto) 3.7 Baso % (Auto) 0.5 Neut # (Auto) 5.0 Lymph # (Auto) 3.2 [place] # (Auto) 0.9 H Eos # (Auto) 0.4 Baso # (Auto) 0.1 Immature Gran % 0.3 Nucleated RBC % 0.0 Immature Gran # 0.03 Nucleated RBCs # 0.00 Immature Plt Fraction 0.0 Sodium 140 Potassium 3.8 Chloride 108 H Carbon Dioxide 24 Anion Gap 11.8 BUN 31 H Creatinine 0.90 GFR Calculation 61 BUN/Creatinine Ratio 34.00 H Glucose 136 H POC Glucose 152 H Calculated Osmolality 287.4 Calcium 9.2 Phosphorus 4.4 Magnesium 2.1 Total Bilirubin 0.90 AST 22 ALT 21 Alkaline Phosphatase 52 Total Protein 6.7 Albumin 3.1 L Globulin 3.6 H Albumin/Globulin Ratio 0.8 L 11/04/16 11/03/16 11/03/16 00:00 20:19 16:29 WBC RBC Hgb Hct MCV MCH MCHC RDW Plt Count MPV Neut % (Auto) Lymph % (Auto) [place] % (Auto) Eos % (Auto) Baso % (Auto) Neut # (Auto) Lymph # (Auto) [place] # (Auto) Eos # (Auto) Baso # (Auto) Immature Gran % Nucleated RBC % Immature Gran # Nucleated RBCs # Immature Plt Fraction Sodium Potassium Chloride Carbon Dioxide Anion Gap BUN Creatinine GFR Calculation BUN/Creatinine Ratio Glucose POC Glucose 167 H 154 H 107 H Calculated Osmolality Calcium Phosphorus Magnesium Total Bilirubin AST ALT Alkaline Phosphatase Total Protein Albumin Globulin Albumin/Globulin Ratio 11/03/16 12:16 WBC RBC Hgb Hct MCV MCH MCHC RDW Plt Count MPV Neut % (Auto) Lymph % (Auto) [place] % (Auto) Eos % (Auto) Baso % (Auto) Neut # (Auto) Lymph # (Auto) [place] # (Auto) Eos # (Auto) Baso # (Auto) Immature Gran % Nucleated RBC % Immature Gran # Nucleated RBCs # Immature Plt Fraction Sodium Potassium Chloride Carbon Dioxide Anion Gap BUN Creatinine GFR Calculation BUN/Creatinine Ratio Glucose POC Glucose 123 H Calculated Osmolality Calcium Phosphorus Magnesium Total Bilirubin AST ALT Alkaline Phosphatase Total Protein Albumin Globulin Albumin/Globulin Ratio DS: Provider Date of admission: 11/01/16 09:18 Primary care physician: . No PCP Attending physician on admission: Monica Luo MD Consults: 11/01/16 09:41 Consult to Case Mgmt/Social Srvs [CONS] Routine Reason for Case Mgmt/Social Srvs: Discharge Planning Consult to Occupational Therapy [CONS] Routine Reason for Occupational Therapy: Evaluate and Treat Consult Comment: Stroke Consult to Physical Therapy [CONS] Routine Reason for Physical Therapy: Evaluate and Treat Consult Comment: stroke 11/01/16 09:47 Consult to Physician [CONS] Routine Comment: left sided weakness/stroke Consulting Provider: Eugene Morgan When should Consulting Provider be notified: Now Consult to Specialist Group: Neurology Person Notified: ALBERTO Date Notified: 08/10/17 Time Notified: 12:51 11/03/16 10:33 Consult to Case Mgmt/Social Srvs [CONS] Routine Reason for Case Mgmt/Social Srvs: Rehab Other Swingbed/SNF/Snf Discharging clinician: Lexie Henderson CNP
[2016-11-04] MEDS ORDERED: HYDROCORTISONE 1% CREAM 28 GM TUBE TOP PRN (10:22)
--- NOTE | 2016-11-04 10:48 | Discharge Summary ---
Hospital Course - Hospital Course Hospital Course: This is a very pleasant 81-year-old female that presented to the ED at [facility] on the morning of November 01, 2016 via EMS for the evaluation of left-sided weakness and left-sided facial droop. The patient has a medical history significant for Parkinson's disease, hyperlipidemia, non- insulin-dependent diabetes mellitus, dementia, and hypertension. The patient reported no significant surgical history at the time of encounter. The patient resided at the [facility]. The patient reported that she first noticed the symptoms around 6 AM on the day of the evening encounter. She reports that she was her normal state of health prior to going to bed at between 9 and 10:00 on the night prior to presentation. She reported that she got up to eat breakfast and started feeling some weakness in her left arm and left leg. In addition, the patient noticed that her speech was difficult and not well understood. She alerted the staff at [place] who subsequently called EMS for further evaluation. The patient was subsequently transported to [facility] for further evaluation. The patient was assessed at the time of ED encounter. At the time of ED presentation, the patient was noted to have profound left-sided weakness, left- sided facial droop, and difficulty speaking. Labs were obtained which were essentially significant for blood glucose level of 151. Chest x-ray reported mild cardiac decompensation. CT head and brain was unremarkable for any evidence of acute infarct or acute process however decreased white matter density and underlying subacute infarct cannot be excluded. The patient was subsequently admitted to the hospitalist service for continuation of care. A full stroke workup was initiated. On November 01, 2016 the patient underwent bilateral carotid Doppler studies which reported less than 50% stenosis in both internal carotid arteries. Echocardiogram on November 01, 2016 reported normal left ventricle size with septal hypertrophy with an ejection fraction of 55% without specific segmental wall abnormalities. A neurology consultation was requested. The patient was seen and recommendations were given. On November 02, 2016, the patient underwent MRI brain without IV contrast which reported a 16 x 8 mm area of acute ischemia in the timmy to the right of midline however, no parenchymal hemorrhage is noted. In addition prominent changes of a chronic small vessel ischemia was noted. Physical, occupational, and speech therapy consultations were requested and treatment was initiated. The patient's condition slowly improved. The patient's condition is stable. She has not experienced any significant overnight events. Today, we feel that she is indeed appropriate for discharge to [facility] for continuation of care. Discharge Plan - Discharge Data Disposition: Disch/Xfer to [facility] Condition at Discharge: Stable Discharge Diet: diabetic diet, heart healthy Activity: as per physical therapy Hygiene: other (Will need assistance with activities of daily living) Weight Bearing at Discharge: other (Physical therapy) Contact your physician if you experience:: fever over 101, Difficulty voiding, Nausea/Vomiting, Shortness of breath, Bleeding, pain uncontrolled by pain medications - Discharge Medications New Pantoprazole Tab [Protonix Tab] 40 mg PO DAILY #30 tablet Clopidogrel [Plavix] 75 mg PO DAILY #30 tablet Hydrocortisone 1% Cream 1 applic TOP QID PRN #1 vial PRN Reason: Itching metFORMIN [Glucophage] 250 mg PO BID W/MEALS #60 tablet Aspirin Tab 325 mg PO DAILY #30 tablet Atorvastatin [Lipitor] 10 mg PO BEDTIME #30 tablet Continue Lisinopril 40 mg PO DAILY amLODIPine [Norvasc] 5 mg PO DAILY Fenofibrate [Tricor] 145 mg PO DAILY Carbidopa/Levodopa [Carbidopa-Levodopa 25-100 Tab] 1 each PO TID Levothyroxine Tab [Synthroid Tab] 25 mcg PO DAILY Metoprolol Succinate Xl [Toprol Xl] 25 mg PO DAILY Glimepiride [Amaryl] 4 mg PO DAILY Discontinued Metformin HCl 1,000 mg PO BID - Follow Up or Referral - Forms/Instructions Exam - Constitutional Vitals: Period Temp Pulse Resp BP Sys/Minor Pulse Ox Last 24 Hr 96.7 F-98.4 F 47-62 16-59 134-159/60-86 92-95 General appearance: normal weight - Head Head exam: Present: normocephalic, atraumatic - Eye Eye exam: Present: other (Mild left facial weakness so weakness the left sided limbs) Pupils: Present: KEVIN - ENT ENT exam: Present: normal oropharynx, other (Optimal gag lift) - Respiratory Respiratory exam: Present: clear to auscultation bilaterally - Cardiovascular Cardiovascular exam: Present: regular rate and rhythm - Extremities Exam Extremities exam: Present: other (Left-sided weakness (hemiparesis), acute stroke) - Neurological Exam Neurological exam: Present: alert, oriented X3, other (Acute stroke with left- sided hemiparesis) - Psychiatric Psychiatric exam: Present: other (Subdued mood but appropriate cognitive output) - Skin Skin exam: Present: normal color, warm, dry Discharge Results Procedures and tests throughout hospitalization: Pending Orders 11/05/16 04:00 CBC [Comp Blood Count Auto Diff] IN AM CMP [Comprehensive Metabolic Panel] IN AM Magnesium IN AM Phosphorous IN AM Labs on day of discharge: Labs from last 24 hours 11/04/16 11/04/16 11/04/16 07:39 02:46 02:46 WBC 9.4 RBC 4.30 Hgb 13.5 Hct 39.2 MCV 91.2 MCH 31 MCHC 34.4 RDW 12.7 Plt Count 195 MPV 12.4 H Neut % (Auto) 52.8 Lymph % (Auto) 33.6 [place] % (Auto) 9.1 Eos % (Auto) 3.7 Baso % (Auto) 0.5 Neut # (Auto) 5.0 Lymph # (Auto) 3.2 [place] # (Auto) 0.9 H Eos # (Auto) 0.4 Baso # (Auto) 0.1 Immature Gran % 0.3 Nucleated RBC % 0.0 Immature Gran # 0.03 Nucleated RBCs # 0.00 Immature Plt Fraction 0.0 Sodium 140 Potassium 3.8 Chloride 108 H Carbon Dioxide 24 Anion Gap 11.8 BUN 31 H Creatinine 0.90 GFR Calculation 61 BUN/Creatinine Ratio 34.00 H Glucose 136 H POC Glucose 152 H Calculated Osmolality 287.4 Calcium 9.2 Phosphorus 4.4 Magnesium 2.1 Total Bilirubin 0.90 AST 22 ALT 21 Alkaline Phosphatase 52 Total Protein 6.7 Albumin 3.1 L Globulin 3.6 H Albumin/Globulin Ratio 0.8 L 11/04/16 11/03/16 11/03/16 00:00 20:19 16:29 WBC RBC Hgb Hct MCV MCH MCHC RDW Plt Count MPV Neut % (Auto) Lymph % (Auto) [place] % (Auto) Eos % (Auto) Baso % (Auto) Neut # (Auto) Lymph # (Auto) [place] # (Auto) Eos # (Auto) Baso # (Auto) Immature Gran % Nucleated RBC % Immature Gran # Nucleated RBCs # Immature Plt Fraction Sodium Potassium Chloride Carbon Dioxide Anion Gap BUN Creatinine GFR Calculation BUN/Creatinine Ratio Glucose POC Glucose 167 H 154 H 107 H Calculated Osmolality Calcium Phosphorus Magnesium Total Bilirubin AST ALT Alkaline Phosphatase Total Protein Albumin Globulin Albumin/Globulin Ratio 08/12/17 12:16 WBC RBC Hgb Hct MCV MCH MCHC RDW Plt Count MPV Neut % (Auto) Lymph % (Auto) [place] % (Auto) Eos % (Auto) Baso % (Auto) Neut # (Auto) Lymph # (Auto) [place] # (Auto) Eos # (Auto) Baso # (Auto) Immature Gran % Nucleated RBC % Immature Gran # Nucleated RBCs # Immature Plt Fraction Sodium Potassium Chloride Carbon Dioxide Anion Gap BUN Creatinine GFR Calculation BUN/Creatinine Ratio Glucose POC Glucose 123 H Calculated Osmolality Calcium Phosphorus Magnesium Total Bilirubin AST ALT Alkaline Phosphatase Total Protein Albumin Globulin Albumin/Globulin Ratio DS: Provider Date of admission: 11/01/16 09:18 Primary care physician: . No PCP Attending physician on admission: Monica Luo MD Consults: 11/01/16 09:41 Consult to Case Mgmt/Social Srvs [CONS] Routine Reason for Case Mgmt/Social Srvs: Discharge Planning Consult to Occupational Therapy [CONS] Routine Reason for Occupational Therapy: Evaluate and Treat Consult Comment: Stroke Consult to Physical Therapy [CONS] Routine Reason for Physical Therapy: Evaluate and Treat Consult Comment: stroke 11/01/16 09:47 Consult to Physician [CONS] Routine Comment: left sided weakness/stroke Consulting Provider: Eugene Morgan When should Consulting Provider be notified: Now Consult to Specialist Group: Neurology Person Notified: ALBERTO Date Notified: 11/01/16 Time Notified: 12:51 11/03/16 10:33 Consult to Case Mgmt/Social Srvs [CONS] Routine Reason for Case Mgmt/Social Srvs: Rehab Other Swingbed/SNF/Senior Care Discharging clinician: Ronen Garrison MD
== END 2016-11-04 11:30 | disposition swing bed (61) | DRG 65 ==
LOC: EDUNIT# → N.ED 07:53 → N.EDINP 09:18 → SUATTDRO 09:18 → N.2E 11:56
PROVIDERS: ADMIT Internal Medicine; ATTEND Internal Medicine Infectious Disease